=== PATIENT | female | born 1960 | race Caucasian/White ===

== ENCOUNTER 2018-07-30 10:04 | Outpatient (CLI) | payer BC, SELFPAY ==
[2018-07-30 13:08] LABS: ALT 31 U/L (12-78); AST 23 U/L (15-37); Albumin 3.7 g/dL (3.4-5.0); Alkaline Phosphatase 102 U/L (46-116); Anion Gap 7.2 mmol/L (3-11); BUN 24 mg/dL (7-18); Bilirubin, Total 0.3 mg/dL (0.2-1.0); CO2 28.8 mmol/L (21.0-32.0); CREATININE 0.91 mg/dL (0.55-1.02); Calcium 8.8 mg/dL (8.5-10.1); Chloride 106 mmol/L (98-107); Glucose 82 mg/dL (70-100); Potassium 4.4 mmol/L (3.5-5.1); Sodium 142 mmol/L (136-145)
== END 2018-07-30 10:24 ==
PROVIDERS: PCP Family Medicine; Visit Provider Family Medicine
DX: F32.9 Major depressive disorder, single episode, unspecified (principal)
CPT/HCPCS: 36415; 80053

== ENCOUNTER 2018-08-18 00:45 | Outpatient (CLI) | payer BC, SELFPAY ==
--- NOTE | 2018-08-18 08:30 | DI.MAMMO_ITS ---
SYMPTOM/DIAGNOSIS: SCREENING, Z12.31 MAMMOGRAMS: Mammograms were interpreted according to the usual protocol including computer analysis with CAD system, tomosynthesis and C view imaging. Comparison is made with prior examinations. Breast density, Category B. No suspicious masses or microcalcifications are seen. There is no definite evidence of malignancy. IMPRESSION: Negative mammogram. Routine screening is recommended. Category 1. MQSA ASSESSMENT OF FINDINGS: Negative. Category 1. Patient will receive a letter notifying them of these results. BI-RADS category B. There are scattered areas of fibroglandular density.
== END 2018-08-18 01:05 ==
PROVIDERS: PCP Family Medicine; Visit Provider Family Medicine
DX: Z12.31 Encounter for screening mammogram for malignant neoplasm of breast (principal)
CPT/HCPCS: 77063; 77067

== ENCOUNTER 2019-12-17 10:18 | Outpatient (CLI) | payer BC, SELFPAY ==
[2019-12-17 13:01] LABS: Hemoglobin A1C 5.5 % (<5.7)
[2019-12-17 13:03] LABS: Anion Gap 6.2 mmol/L (3-11); BUN 20 mg/dL (7-18); CO2 28.8 mmol/L (21.0-32.0); CREATININE 0.85 mg/dL (0.55-1.02); Calcium 8.8 mg/dL (8.5-10.1); Calculated LDL 115 mg/dL (<100); Chloride 108 mmol/L (98-107); Cholesterol 197 mg/dL (<200); Glucose 84 mg/dL (74-106); HDL Cholesterol 69 mg/dL (40-60); Potassium 4.6 mmol/L (3.5-5.1); Sodium 143 mmol/L (136-145); Triglyceride 67 mg/dL (<150)
== END 2019-12-17 10:38 ==
PROVIDERS: PCP Family Medicine; Visit Provider Nurse Practitioner Family
DX: Z00.00 Encounter for general adult medical examination without abnormal findings (principal); E66.9 Obesity, unspecified; Z13.220 Encounter for screening for lipoid disorders; Z13.1 Encounter for screening for diabetes mellitus
CPT/HCPCS: 36415; 80048; 80061; 83036

== ENCOUNTER 2020-01-10 01:58 | Outpatient (CLI) | payer BC, SELFPAY ==
--- NOTE | 2020-01-10 07:00 | DI.US_ITS ---
EXAM: US AAA SCREENING CLINICAL HISTORY: Fam hx of AAA, screen for AAA,Z82.49 COMPARISON: No exams were available for comparison FINDINGS: The aorta measures 2 cm in maximal dimension proximally. Iliac arteries are normal in diameter. IMPRESSION: No evidence of abdominal aortic aneurysm. DATA REPOSITORY:
--- NOTE | 2020-01-10 07:00 | DI.MAMMO_ITS ---
EXAM: MAMMO SCREENING CLINICAL HISTORY: screening,Z12.39 TECHNIQUE: Mammograms were interpreted according to the usual protocol including computer analysis w [employer] CAD system, tomosynthesis and C-view imaging. COMPARISON: 2010 through 2018 FINDINGS: The breasts are composed of scattered fibroglandular densities, Breast Density category B. No suspicious masses or suspicious microcalcifications are seen. No skin thickening or abnormal axillary lymph nodes are seen. There has been no significant change from prior exams. IMPRESSION: BI-RADS Category 1, Negative mammogram Yearly screening mammography is recommended. Breast Density - Category B, scattered fibroglandular densities. A negative radiographic report should not delay biopsy if a dominant or clinically suspicious mass is present. Up to ten percent of cancers are not identified on mammography. A negative report may reinforce clinical impression. Adenosis and dense breasts may obscure an underlying neoplasm. False positive reports average 6 to 10%. Patient will receive a letter notifying them of these results.
== END 2020-01-10 02:18 ==
PROVIDERS: PCP Family Medicine; Visit Provider Nurse Practitioner Family
DX: Z12.31 Encounter for screening mammogram for malignant neoplasm of breast (principal); Z82.49 Family history of ischemic heart disease and other diseases of the circulatory system
CPT/HCPCS: 76706; 77063; 77067

== ENCOUNTER 2020-01-19 00:47 | Outpatient (CLI) | payer BC, SELFPAY ==
--- NOTE | 2020-01-19 07:45 | DI.DEXA_ITS ---
EXAM: XR DEXA BONE DENSITY W/WO MAXIMINO CLINICAL HISTORY: SCREENING FOR OSTEOPOROSIS IN POSTMENOPAUSAL WOMAN,Z78.0 TECHNIQUE: COMPARISON: No exams were available for comparison FINDINGS: DEXA scan was performed according to the usual protocol. Please see the accompanying data sheets. F indings for left hip scanning are T-score 0.8 with left femoral neck T-score 0. Lumbar spine scanning shows T-score 1.6. Left forearm scanning shows T-score 0.3. IMPRESSION: Findings consistent with normal bone density according to the WHO criteria. The lateral vertebral sc anogram shows no evidence of a vertebral compression fracture. RADIATION DOSE DELIVERED: Total DLP
== END 2020-01-19 01:07 ==
PROVIDERS: PCP Family Medicine; Visit Provider Nurse Practitioner Family
DX: Z78.0 Asymptomatic menopausal state (principal)
CPT/HCPCS: 77080

== ENCOUNTER 2020-02-24 07:13 | Outpatient (CLI) | payer BC, SELFPAY ==
[2020-02-26 10:22] LABS: SARS-CoV-2 RNA Not Detected (NotDetected); SARS-CoV-2 RNA Source Nasal/Nares
== END 2020-02-24 07:33 ==
PROVIDERS: Surgery; PCP Family Medicine; Visit Provider Surgery
DX: Z11.59 Encounter for screening for other viral diseases (principal); Z01.818 Encounter for other preprocedural examination
CPT/HCPCS: U0003

== ENCOUNTER 2020-03-02 02:57 | Outpatient (CLI) | payer BC, SELFPAY ==
[2020-03-03 21:31] LABS: SARS-CoV-2 RNA Not Detected (NotDetected); SARS-CoV-2 RNA Source Nasal/Nares
== END 2020-03-02 03:17 ==
PROVIDERS: Surgery; PCP Family Medicine; Visit Provider Surgery
DX: Z11.59 Encounter for screening for other viral diseases (principal); Z01.818 Encounter for other preprocedural examination
CPT/HCPCS: U0003

== ENCOUNTER 2020-03-06 06:09 | Day surgery (SDC) | payer BC, SELFPAY ==
[2020-03-06 06:32] VITALS: BP 110/79; PULSE 87; RESP 18; TEMP 36.6; O2SAT 96
--- NOTE | 2020-03-06 06:50 | COLE_ITS ---
Date of service: 03/06/20 Time of Service: 08:00 Colonoscopy Report Date of procedure: 03/06/20 Pre-op diagnosis general: Colon Cancer Screening Post-op diagnosis procedure note: same Procedure: Colonoscopy Surgeon: Elizabeth Velazco Anesthesia proc note operative: other (General/ASa 2/Juliana Levin, SERGE) Estimated blood loss (mL): 0 Pathology: none sent Complications: None Disposition: same day Indications: The patient is here for Colonoscopy pre-op. Her last screening was in 2009 and was unremarkable. She has no family history of colon cancer. She has not had any bowel habit changes. -Discussed colonoscopy bowel prep as well as the procedure. Discussed possible complications of the procedure to include bleeding, pain, perforation, missed small lesion/polyp, sore throat, aspiration and adverse reaction to the medicat ions. Questions were answered to patient?s satisfaction. No guarantees were implied or given. Prep: Miralax/Dulcolax Procedure Start Time: 07:27 Procedure End Time: 07:57 Retraction Time: 16 Findings: Normal colon Procedure Description: After informed consent was obtained the patient was taken to the procedure room and placed in a left decubitous position. Monitors were applied and a time out was done. The patients name, date of , procedure, allergies to medications and metal in their body was reviewed. The patient was then sedated. Once sedated and comfortable a rectal exam was done. External exam was normal. Internal exam revealed a normal sphincter tone and no palpable masses. The scope was then introduced and retro-flexed. No internal hemorrhoids were identified. The scope was then advanced to the cecum without difficulty. The ileocecal valve and appendiceal orifice were identified. The prep was adequate. The scope was then slowly retracted over 16 minutes back into the rectum. There were no polyps and no diverticula. The scope was removed and the patient was woken up and taken back to Same day surgery in stable condition. The patient tolerated the procedure well and there were no immediate complications. Unfortunately the printer did not work and we lost the pictures taken. Follow up: The patient should follow up in 10 years unless they develop changes in bowel habits or other new gastrointestinal complaints.
--- NOTE | 2020-03-06 06:51 | W.PM.DSUDISC ---
Discharge Plan Disposition Patient Disposition: HOME Condition: Good Discharge Details Reason For Visit: Colonoscopy Attending Provider: Elizabeth Velazco Primary Care Provider: Andreina Sanders Home Meds and New Rx's Prescriptions: Continued venlafaxine 150 mg capsule,extended release 24hr 150 - 200 mg PO BID Qty: 180 RF: 4 cyanocobalamin (vitamin B-12) 1,000 mcg capsule 1,000 mcg PO DAILY RF: 0 Shingrix (PF) 50 mcg/0.5 mL suspension for reconstitution 0.5 ml IM ONCE Qty: 1 RF: 0 ascorbic acid (vitamin C) 1,000 MG tablet 1,000 mg PO DAILY Qty: 90 RF: 4 ibuprofen 600 MG tablet 300 - 600 mg PO Q6H PRN Qty: 90 RF: 4 calcium carbonate-vitamin D3 [Caltrate with Vitamin D3] 1 EACH tablet 1 ea PO DAILY Qty: 90 RF: 4 bupropion HCl (smoking deter) 150 MG tablet extended release 12 hr 150 mg PO HS Qty: 90 RF: 4 CENTRUM SILVER TABLET 1 EACH tablet 1 ea PO DAILY Qty: 90 RF: 4 GLUCOSAMINE \T\ CHONDROITIN CAP 1 EACH capsule 1 ea PO DAILY Qty: 90 RF: 4 albuterol sulfate [Proventil HFA] 6.7 GM HFA aerosol inhaler 2 puff Inhalation Q4H PRN Qty: 1 RF: 6 fluticasone propion-salmeterol [Advair Diskus] 250-50 mcg/dose blister with device 1 inh Inhalation BID Qty: 1 RF: 11 bupropion HCl 100 mg tablet sustained-release 12 hr 200 mg PO QAM Qty: 180 RF: 4 quetiapine [Seroquel] 100 mg tablet 200 mg PO HS Qty: 180 RF: 4 quetiapine 25 mg tablet 75 mg PO QAM Qty: 270 RF: 4 Discontinued polyethylene glycol 3350 17 gram/dose powder 238 g PO ONCE Qty: 238 RF: 0 bisacodyl [Dulcolax (bisacodyl)] 5 mg tablet,delayed release (DR/EC) 5 mg PO ONCE Qty: 4 RF: 0 Discharge Instructions Additional Instructions: Findings: Normal large bowel Follow up: 10 years Please call if you develop: fevers >101.5 Nausea or Vomiting Abdominal pain that is not transient DAY SURGERY UNIT POST ENDOSCOPY INSTRUCTIONS 1. Because there will be medication in your system for the next 24 hours, you may feel a little sleepy. Your coordination will be affected. Therefore: a. Do not drive or operate dangerous equipment for 24 hours. b. Do not drink alcohol beverages for 24 hours (not even beer). c. Plan to go home and rest for the day. 2. Generally there are no restrictions on your activity after a day or so has gone by, but you may feel a bit fatigued for a few days. 3 After you arrive home you may have a light meal and return to a normal diet as you can tolerate it without feeling sick to your stomach. 4. After surgery, you may feel pain or discomfort. This should be only transient, but if it persists please contact your doctor. 5. If there are any questions regarding the findings of your procedure, please feel free to contact your doctor. 6. If you are unable to contact your doctor with a problem, contact the hospital at [phone]. 7. Continue all your regular medications unless directed otherwise. I understand the above instructions and have no questions. Signature of Patient or Responsible Adult Escort Date/Time Name of Responsible Adult Escort Signature of Nurse Date/Time Activity:: Activity as Tolerated Diet:: As Tolerated Discharge Orders Discharge Orders: Discharge Order (Routine); Ordered 03/06/20 Ordered By: Elizabeth Velazco
[2020-03-06] MEDS: Lactated Ringers 1,000 ML 80 ML IV (06:54)
[2020-03-06 08:30] VITALS: BP 119/85; PULSE 71; RESP 16; TEMP 36.2; O2SAT 100
[2020-03-06 08:49] VITALS: PULSE 71; RESP 17; TEMP 36.5; O2SAT 96
== END 2020-03-06 09:00 | disposition home or self-care (01) ==
PROVIDERS: PCP Family Medicine; Visit Provider Surgery
PROC: 0DJD8ZZ Inspection of Lower Intestinal Tract, Via Natural or Artificial Opening Endoscopic (ICD-10-PCS; CPT 45378; principal; 2020-03-06 07:30)
DX: Z12.11 Encounter for screening for malignant neoplasm of colon (principal); E66.9 Obesity, unspecified; J45.30 Mild persistent asthma, uncomplicated
CPT/HCPCS: 45378; J2001; J2704

== ENCOUNTER 2021-01-18 02:26 | Outpatient (CLI) | payer BC, SELFPAY ==
--- NOTE | 2021-01-18 12:09 | DI.MAMMO_ITS ---
Exam(s) MAMMO SCREENING EXAM: MAMMO SCREENING CLINICAL HISTORY: screening,z12.39 TECHNIQUE: Bilateral full field digital CC and MLO mammographic images were obtained with 3D tomosyn thesis and utilizing computer aided detection (CAD). COMPARISON: Available for comparison. FINDINGS: Masses/Architectural Distortion: None seen. Microcalcifications: No suspicious pleomorphic-type are seen. Skin Thickening/Nipple Retraction: None. IMPRESSION: 1. No significant interval change with no specific features of malignancy noted. 2. Unless there is more urgent need, screening mammography is recommended, as per [employer] guidelines. BI-RADS Category 1 - Negative Breast Density - Category B - Scattered areas of fibroglandular density Breast density category C or D implies that the patient has dense breast tissue. Dense breast tissue is very common and is not abnormal but dense breast tissue can make it harder to find cancer on a ma mmogram. Also, dense breast tissue may increase their breast cancer risk. This information about the result of the mammogram report was provided to the patient to raise their awareness. Use this report when you speak with the patient about their risks for breast cancer, which includes their family hist ory. At that time, you may recommend for more screening tests (Ultrasound or MRI) as they might be us eful based on their risk. A negative radiographic report should not delay biopsy if a dominant or clinically suspicious mass is present. Up to ten percent of cancers are not identified on mammography. A negative report may reinforce clinical impression. Adenosis and dense breasts may obscure an underlying neoplasm. False positive reports average 6 to 10%. Patient will receive a letter notifying them of these results.
== END 2021-01-18 02:46 ==
PROVIDERS: PCP Nurse Practitioner Family; Visit Provider Nurse Practitioner Family
DX: Z12.31 Encounter for screening mammogram for malignant neoplasm of breast (principal)
CPT/HCPCS: 77063; 77067

== ENCOUNTER 2021-01-18 03:14 | Outpatient (CLI) | payer BC, SELFPAY ==
[2021-01-18 13:04] LABS: Anion Gap 5.8 mmol/L (3-11); BUN 17 mg/dL (7-18); CO2 27.2 mmol/L (21.0-32.0); CREATININE 0.9 mg/dL (0.55-1.02); Calcium 8.8 mg/dL (8.5-10.1); Chloride 108 mmol/L (98-107); Glucose 79 mg/dL (74-106); Potassium 4.5 mmol/L (3.5-5.1); Sodium 141 mmol/L (136-145)
== END 2021-01-18 03:15 | disposition home or self-care (01) ==
LOC: LBO 03:14
PROVIDERS: PCP Nurse Practitioner Family; Visit Provider Nurse Practitioner Family
DX: F32.9 Major depressive disorder, single episode, unspecified (principal)
CPT/HCPCS: 36415; 80048

== ENCOUNTER 2021-12-27 07:33 | Outpatient (CLI) | payer BC, SELFPAY ==
--- NOTE | 2021-12-27 07:30 | RT.EKG_ITS ---
APPROVED REPORT Exam: Resting ECG Reason for Exam: Hattie-ulises Patient Location: O HR:125 bpm ECG Measurements Heart Rate 125 AXIS MA 197 P 85 QRSd 91 QRS 65 QT 328 T -70 QTc 473 Conclusion Atrial flutter Low voltage, precordial leads...precordial leads <1.0mV ST elevation, consider inferior injury...ST >0.08mV, II III aVF
== END 2021-12-27 07:34 | disposition home or self-care (01) ==
LOC: DI.CM 07:34
PROVIDERS: PCP Nurse Practitioner Family; Visit Provider Nurse Practitioner Family
DX: I48.91 Unspecified atrial fibrillation (principal); I48.92 Unspecified atrial flutter
CPT/HCPCS: 93010

== ENCOUNTER 2021-12-27 08:25 | Emergency (ER) | payer BC, SELFPAY ==
[2021-12-27] VITALS (52 sets, daily range): BP systolic 107–126; BP diastolic 77–100; PULSE 47–159; RESP 10–29; TEMP 36.9; O2SAT 96–99
--- NOTE | 2021-12-27 08:15 | RT.EKG_ITS ---
APPROVED REPORT Exam: Resting ECG Reason for Exam: lightheaded Patient Location: E HR:125 bpm ECG Measurements Heart Rate 125 AXIS ME [id number] P [id number] QRSd 96 QRS 56 QT 333 T -78 QTc 476 Conclusion Atrial flutter with predominant 2:1 AV block...A-rate 254, multiple Ps Borderline T abnormalities, diffuse leads...T flat/neg ST elevation, consider inferior injury...ST >0.08mV, II III aVF. A flutter w/ 2:1 AV block. Early repolarization in inferior leads? No STEMI.
--- NOTE | 2021-12-27 08:27 | ED.GENADUL_ITS ---
Discharge Plan Disposition Patient Disposition: HOME Condition: Stable Discharge Details Clinical Impression: New onset atrial flutter Primary Care Provider: Nelly Jacobson ED Provider: Samantha Campos Home Meds and New Rx's Prescriptions: New metoprolol succinate 25 mg tablet extended release 24 hr 25 mg PO BID Qty: 60 0RF Eliquis 5 mg tablet 5 mg PO BID Qty: 60 0RF Rx Instructions: Take 2 tabs twice daily for 1 week and then 1 tab twice daily Continued albuterol sulfate [Proventil HFA] 90 mcg/actuation HFA aerosol inhaler 2 puff Inhalation Q4H PRN Qty: 1 6RF fluticasone propion-salmeterol [Advair Diskus] 250-50 mcg/dose blister with device 1 inh Inhalation BID Qty: 90 4RF venlafaxine 150 mg capsule,extended release 24hr 150 - 200 mg PO BID Qty: 180 Rx Instructions: 150mg AM, 200mg evening cyanocobalamin (vitamin B-12) 1,000 mcg capsule 1,000 mcg PO DAILY bupropion HCl 150 mg tablet extended release 24 hr 150 mg PO QHS glucosamine-chondroitin 900 mg tablet 900 mg PO DAILY Centrum Silver Women 8 mg iron-400 mcg-300 mcg tablet 1 tab PO DAILY ascorbic acid (vitamin C) 1,000 MG tablet 1,000 mg PO DAILY Qty: 90 ibuprofen 600 MG tablet 300 - 600 mg PO Q6H PRN Qty: 90 calcium carbonate-vitamin D3 [Caltrate with Vitamin D3] 1 EACH tablet 1 ea PO DAILY Qty: 90 bupropion HCl 100 mg tablet sustained-release 12 hr 200 mg PO QAM Qty: 180 quetiapine [Seroquel] 100 mg tablet 200 mg PO HS Qty: 180 quetiapine 25 mg tablet 75 mg PO QAM Qty: 270 Discharge Instructions Instructions: Atrial Flutter (ED) Additional Instructions: You were found to be in an abnormal heart rhythm called atrial flutter today. Your blood test and EKGs were reviewed with [facility] cardiology and they are recommending to start you on a beta-darien medication to control your heart rate and anticoagulation which is a blood thinner to prevent the development of a blood clot. Prescriptions for the beta-darien medication metoprolol and the blood thinner Eliquis has been sent electronically to your pharmacy. Return the telemetry monitor to the hospital as directed by respiratory therapy. You have been placed on care management list to arrange for a follow-up appointment with [facility] electrophysiology for further evaluation of your new onset atrial flutter and for consideration for cardioversion (which is a p rocedure that can shock your heart back into a normal rhythm) if indicated. Return immediately to the emergency department if you develop any worsening or new concerning symptoms. Referrals: Martha Finley MD [ [facility] STAFF PHYSICIAN] - Discharge Orders Other Ambulatory Orders: Cardiac Event Recorder (STAT) Timeframe: [id number] Facility: [facility] - Location: Respiratory Therapy Ordered By: Samantha Campos Discharge Data Discharge Date/Time-TO BE ENTERED AT DEPARTURE: 12/27/21 13:40 Discharge Physician: Samantha Campos Medical Decision Making 08 -- 61-year-old female with a history of obesity, depression and hyperlipidemia presents from [facility] for concern for OR on EKG done on her annual exam today was noted to have a heart rate of 130s. EMS reported a heart rate of 130s, regular with [address] elevation in 2 3 and aVF. She was given aspirin in route. Heart rate 120s and EKG notes a flutter with 2-1 AV block. She has normal blood pressure and oxygen saturation. She appears comfortable and nontoxic. She has what appears to be more widening of the QRS without significant ST elevation in 2 3 and aVF. Does not meet criteria for STEMI. Other than the EKG earlier today at [facility] there are no other EKGs to compare. We will consult [facility] cardiology for recommendations. Suspect patient's EKG findings are in the setting of arrhythmia secondary to atrial flutter. We will slow down her rate with Lopressor 2.5 mg IV and discuss further with [facility]. Case discussed with [facility] cardiology MEDICAL PROGRAM SPECIALIST Xavier Aquino who reviewed EKG w [facility] fellow --agrees that this appears more consistent with atrial flutter with 2-1 AV block. Agrees with plan for 2.5 mg Lopressor IV. If patient's work-up is unremarkable and she remains asymptomatic, can treat with metoprolol succinate, treatment with anticoagulation for 3 weeks, follow-up with electrophysiology and telemetry monitor upon discharge. Patient given 2.5 mg Lopressor IV and heart rate decreased to 90s. 1030 --labs and imaging reviewed. Normal white blood cell count. Troponin negative. BNP within normal limits. Chest x-ray negative. Heart rate now increased into the low 100s. We will give metoprolol succinate p.o. 25 mg x 1 and reassess. Plan for repeat troponin and EKG at 11:20 AM. Patient asymptomatic at this time. 1300 --repeat troponin negative. Repeat EKG notes a rate of 100, flutter waves, no STEMI. Patient's heart rate had briefly increased to 110s for which she was given an additional 2.5 mg Lopressor IV with improvement of heart rate now into the 80s and 90s. Patient reassessed and she remains asymptomatic. Patient feels comfortable going home. Case discussed again with [facility] cardiology nurse practitioner Xavier Aquino who reviewed repeat EKG and agrees with plan for discharge to home. Will prescribe metoprolol succinate 25 mg p.o. twice daily and Eliquis. A 30- day event monitor has been placed. She was placed on care management list to arrange for a follow-up appointment with electrophysiology at [facility]. Usual and customary return precautions given prior to discharge. Medical Records Medical records reviewed: Yes I reviewed the patient's medical records. Imaging Data Radiologic Study: Radiologist's impression: XR PORTABLE CHEST AP CLINICAL HISTORY:? lightheadedness, r/o acute disease TECHNIQUE:? 2D digital imaging was performed of the chest. One image was obtain ed.? An AP view was obtained. COMPARISON:? No exams were available for comparison FINDINGS: MEDIASTINUM: Normal.? HEART: Normal. PULMONARY VASCULATURE: Normal. LUNGS: Clear.? PLEURAL SPACE: No pleural effusion or pneumothorax. BONE:Within normal limits for the patient's age. OTHER FINDINGS:Normal.? IMPRESSION: No acute pulmonary findings. Lab Data Lab results reviewed: Yes I reviewed the patient's lab results. Labs: Laboratory Tests Range/Units 12/27/21 12/27/21 12/27/21 08:37 08:37 08:37 WBC (4.4-10.8) 10^3/uL 8.66 RBC (3.93-5.22) 10^6/uL 3.90 L Hgb (11.2-15.7) g/dL 11.9 Hct (36.0-46.0) % 36.8 MCV (80-95) fL 94 MCH (27.0-33.0) pg 30.5 MCHC (32.0-36.0) % 32.3 RDW (11.7-14.6) % 13.2 Plt Count (130-400) 10^3/uL 250 MPV (8.0-11.0) fL 9.1 Immature Gran % 0.5 Neutrophils % 62.4 Lymphocytes % 26.7 Monocytes % 8.0 Eosinophils % 1.8 Basophils % 0.6 Nucleated RBC % (0.0-0.3) % 0.0 Absolute Neutrophils (1.2-6.7) 10^3/uL 5.41 Absolute Lymphocytes (1.2-3.4) 10^3/uL 2.31 Absolute Monocytes (0.1-0.8) 10^3/uL 0.69 Absolute Eosinophils (0.0-0.7) 10^3/uL 0.16 Absolute Basophils (0.0-0.2) 10^3/uL 0.05 Sodium (136-145) mmol/L 140 Potassium (3.5-5.1) mmol/L 4.2 Chloride (98-107) mmol/L 108 H Carbon Dioxide (21.0-32.0) mmol/L 27.8 Anion Gap (3-11) mmol/L 4.2 BUN (7-18) mg/dL 19 H Creatinine (0.55-1.02) mg/dL 0.9 Est GFR (CKD-EPI 2020) (mL/min/1.73m2) 71.83 Glucose (74-106) mg/dL 87 Calcium (8.5-10.1) mg/dL 8.3 L Magnesium (1.8-2.4) mg/dL 2.0 Total Bilirubin (0.2-1.0) mg/dL 0.2 AST (15-37) U/L 21 ALT (14-59) U/L 22 Alkaline Phosphatase (46-116) U/L 108 Troponin I (<or=60) ng/L < 50 NT-Pro-B Natriuret Pep (<300) pg/mL 172 Cancelled Total Protein (6.4-8.2) g/dL 6.8 Albumin (3.4-5.0) g/dL 3.2 L Range/Units 12/27/21 11:07 WBC (4.4-10.8) 10^3/uL RBC (3.93-5.22) 10^6/uL Hgb (11.2-15.7) g/dL Hct (36.0-46.0) % MCV (80-95) fL MCH (27.0-33.0) pg MCHC (32.0-36.0) % RDW (11.7-14.6) % Plt Count (130-400) 10^3/uL MPV (8.0-11.0) fL Immature Gran % Neutrophils % Lymphocytes % Monocytes % Eosinophils % Basophils % Nucleated RBC % (0.0-0.3) % Absolute Neutrophils (1.2-6.7) 10^3/uL Absolute Lymphocytes (1.2-3.4) 10^3/uL Absolute Monocytes (0.1-0.8) 10^3/uL Absolute Eosinophils (0.0-0.7) 10^3/uL Absolute Basophils (0.0-0.2) 10^3/uL Sodium (136-145) mmol/L Potassium (3.5-5.1) mmol/L Chloride (98-107) mmol/L Carbon Dioxide (21.0-32.0) mmol/L Anion Gap (3-11) mmol/L BUN (7-18) mg/dL Creatinine (0.55-1.02) mg/dL Est GFR (CKD-EPI 2020) (mL/min/1.73m2) Glucose (74-106) mg/dL Calcium (8.5-10.1) mg/dL Magnesium (1.8-2.4) mg/dL Total Bilirubin (0.2-1.0) mg/dL AST (15-37) U/L ALT (14-59) U/L Alkaline Phosphatase (46-116) U/L Troponin I (<or=60) ng/L < 50 NT-Pro-B Natriuret Pep (<300) pg/mL Total Protein (6.4-8.2) g/dL Albumin (3.4-5.0) g/dL ECG Data Attestation: I personally reviewed and interpreted this ECG (s) as follows: Interpretation: #1 -- rate of 125, a flutter, no stemi, may be early repol inferior leads. #2 -- rate of 90, sinus vs flutter waves, no stemi. #3 -- rate of 100, a flutter, no stemi. HPI General Mode of arrival: ambulatory . Date/Time Provider Initiated Documentation: 12/27/21 08:45 . Limitations to Documentation: no limitations . Information obtained by: patient . HPI Narrative: Patient is a 61-year-old female with a history of obesity, depression, hyperlipidemia who presents for concern for OR per EKG done at [facility] this morning. Patient states she was at [facility] this morning for her annual exam when they noted her heart rate to be in the 130s and diffuse ST elevation. [facility] called to inform us that they were transporting patient by ambulance for possible OR. They reported that patient was asymptomatic. EMS reported that patient's heart rate was in the 130s and regular with [address] elevation in 2, 3 and aVF. They reported that patient had lightheadedness that has been intermittent and chronic. On arrival to ED, patient states she has had intermittent lightheadedness for a long time which she thought was due to her medications. She states that had she not been brought here for evaluation, she would not have mentioned the lightheadedness and thought it was not unusual. She states she was unaware of her tachycardia and has denied any palpitations. She denies any fever, chest pain, shortness of breath, abdominal pain, nausea, vomiting, diarrhea or urinary symptoms. She denies any spinning sensation or headache. She denies any alcohol or drug use. She denies any [id number]-qsbbgny medications, caffeine, or weight loss. Related Data Home Medications Medication Instructions Recorded Confirmed ascorbic acid (vitamin C) 1,000 mg 1,000 mg PO DAILY #90 tab-caps 02/24/13 12/27/21 tablet calcium carbonate 600 mg-vitamin 1 ea PO DAILY #90 tab-caps 02/24/13 12/27/21 D3 20 mcg (800 unit) tablet (Caltrate with Vitamin D3) ibuprofen 600 mg tablet 300 - 600 mg PO Q6H PRN #90 02/24/13 12/27/21 tab-caps bupropion HCl 100 mg tablet,12 hr 200 mg PO QAM #180 tab-caps 12/17/19 12/27/21 sustained-release cyanocobalamin (vitamin B-12) 1,000 mcg PO DAILY 12/17/19 12/27/21 1,000 mcg capsule quetiapine 100 mg tablet (Seroquel) 200 mg PO HS #180 tab-caps 12/17/19 12/27/21 quetiapine 25 mg tablet 75 mg PO QAM #270 tab-caps 12/17/19 12/27/21 venlafaxine 150 mg 150 - 200 mg PO BID #180 tab-caps 12/17/19 12/27/21 capsule,extended release 24 hr albuterol sulfate 90 mcg/actuation 2 puff inhalation Q4H PRN ##1 12/22/20 12/27/21 aerosol inhaler (Proventil HFA) fluticasone 250 mcg-salmeterol 50 1 inh inhalation BID #90 ea 12/22/20 12/27/21 mcg/dose blistr powdr for inhalation (Advair Diskus) antiarthritic combination no.2 900 900 mg PO DAILY 12/27/21 12/27/21 mg tablet (glucosamine-chondroitin) apixaban 5 mg tablet (Eliquis) 5 mg PO BID #60 tabs 12/27/21 bupropion HCl 150 mg 24 hr tablet, 150 mg PO QHS 12/27/21 12/27/21 extended release metoprolol succinate 25 mg 25 mg PO BID #60 tabs 12/27/21 tablet,extended release 24 hr multivit with 1 tab PO DAILY 12/27/21 12/27/21 qwrpjafd-tvur-ID-lutein 8 mg iron-400 mcg-300 mcg tablet (Centrum Silver Women) Previous Rx's Medication Instructions Recorded albuterol sulfate 90 mcg/actuation 2 puff inhalation Q4H PRN ##1 12/22/20 aerosol inhaler (Proventil HFA) fluticasone 250 mcg-salmeterol 50 1 inh inhalation BID #90 ea 12/22/20 mcg/dose blistr powdr for inhalation (Advair Diskus) apixaban 5 mg tablet (Eliquis) 5 mg PO BID #60 tabs 12/27/21 metoprolol succinate 25 mg 25 mg PO BID #60 tabs 12/27/21 tablet,extended release 24 hr Allergies Allergy/AdvReac Type Severity Reaction Status Date / Time No Known Allergies Allergy Verified 12/27/21 07:13 General Stated Complaint: Dizzy/Sync CLEO: 3 Review of Systems All systems reviewed & are unremarkable except as noted in HPI and below Constitutional Constitutional: Denies chills, Denies excessive sweating, Denies fatigue, Denies fever(s), Denies weakness and Denies weight loss Eyes Eyes: Reports system reviewed and no additional complaints, except as documented and Denies blurry vision ENT Ears, Nose, Mouth, and Throat: Denies vertigo, Reports dizziness, Denies otalgia, Denies nasal congestion, Denies sore throat and Denies throat swelling Cardiovascular Cardiovascular: Denies chest pain, Denies syncope, Denies rapid heart rate and Denies dyspnea Respiratory Respiratory: Denies chest congestion, Denies cough, Denies pain on inspiration and Denies dyspnea Gastrointestinal Gastrointestinal: Denies abdominal pain, Denies diarrhea and Denies vomiting Genitourinary Genitourinary: Denies hematuria, Denies dysuria and Denies flank pain Musculoskeletal Musculoskeletal: Denies back pain and Denies joint swelling Integumentary/Breasts Skin/Breast: Denies lesions and Denies rash Neurologic Neurologic: Denies behavioral changes, Denies confusion, Denies vertigo, Reports dizziness, Denies syncope, Denies localized weakness and Denies weakness Psychiatric Psychiatric: Denies behavioral changes, Denies confusion and Denies depression Endocrine Endocrine: Denies excessive sweating and Denies fatigue Hematologic/Lymphatic Hematologic/Lymphatic: Denies easy bruising and Denies lymphadenopathy Allergic/Immunologic Allergic/Immunologic: Denies throat swelling PFSH All Active Problems (Updated 12/27/21 @ 12:45 by Samantha Campos DO) New onset atrial flutter (Acute) Medical History (Updated 12/27/21 @ 12:45 by Samantha Campos DO) Hyperlipidemia Major depressive disorder Followed by psychiatrist Dr. Zee Reina [facility] Migraine aura without headache Mild persistent asthma Obesity Surgical History S/P colonoscopy (04/25/09) S/P PRAVEEN-BSO (total abdominal hysterectomy and bilateral salpingo-oophorectomy) (~1999) Family History Mother Essential hypertension Hyperlipidemia Heart disease Father , 88 from brain bleed Skin cancer Atrial fibrillation Brain aneurysm AAA (abdominal aortic aneurysm) Alcohol abuse Sister Substance abuse Essential hypertension Hyperlipidemia Melanoma Alcohol abuse Asthma Brother , 57 of OR Skin cancer Substance abuse Heart disease Myocardial infarction Brother Essential hypertension Heart disease Skin cancer Maternal Grandfather , at 73 Hypertension Heart disease Myocardial infarction Maternal Grandmother , 98 Essential hypertension Heart disease Skin cancer Breast cancer Paternal Grandfather No problems noted. Paternal Grandmother AAA (abdominal aortic aneurysm) Social History Smoking/Tobacco Use Status: Never Second Hand Exposure: Yes Smoking risk assessment performed?: Yes Alcohol Intake: current Alcohol Intake frequency: a few times a month Drug use: Never Substance use type: does not use Caregiver/Support person: No Household members: spouse Housing: house Communication Needs: Corrective Lenses Do you need help understanding health information?: Rarely Pets and animals: Yes Pets and animals: cat(s) and dog(s) Sexually active: Yes Do you think of yourself as: lesbian/dos santos/homosexual What is your relationship status?: How often do you talk on the phone with friends or family?: twice per week How often do you get together with friends or relatives?: twice per week How often do you attend pentecostal or anabaptism services?: 1-3 times per year Do you belong to any clubs or organized social groups?: yes Panel score (0-1 are the most socially isolated patients): 3 What type of physical activity do you participate in: walking and weight lifting Duration: 30-45 minutes/day Frequency: 5-6 times per week Rody/Yazdanism: [employer]ar[employer] Special rody needs: No Seatbelt use: always Helmet use: No Drive intox or ride w/intox xm1 tank driver: No Do you feel safe at home: Yes Do you feel safe in your relationship?: Yes History History 0 Para Hx # Term Pregnancies Multiple births Hx # Pregnancies Ectopic pregnancies AB induced Hx Number of Living Children AB spontaneous Exam Const General: cooperative and no acute distress Orientation: alert, awake and oriented x3 HENMT Head: normal to inspection Ears: hearing grossly normal bilaterally, external ears normal and TM's normal bilaterally General nose exam: external nose normal Face and sinus: normal facial exam Mouth: oral mucosae normal Teeth and gingiva: dentition normal Throat: posterior oropharynx normal Eyes General: appearance normal, both eyes and all related structures Eyelids: eyelids normal Pupils: PERRL EOM: EOM intact bilaterally Neck Neck: normal visual inspection Lymphatic: no lymphadenopathy noted Chest Chest: normal inspection of the chest Resp Effort & Inspection: normal respiratory effort and able to speak in complete sentences Auscultation: clear to auscultation bilaterally Cardio Rate: tachycardic Rhythm: regular rhythm GI Inspection: normal to inspection Palpation: soft, not firm, no guarding, no hepatosplenomegaly, no masses and nontender Auscultation: normal bowel sounds Skin General skin exam: no rashes or lesions noted Neuro General: patient alert and patient awake Cognition: normal cognition Speech: speech normal Gait: normal gait Motor: muscle tone normal throughout Sensory Exam: no sensory deficits noted Extrem General: normal to inspection, full ROM, capillary refill normal and no edema Psych Appearance: grossly normal Mental Status: mental status grossly normal Speech and Movement: speech and movement normal Affect: normal affect Thought Process: normal
[2021-12-27 08:43] LABS: Abs Immature Grans 0.04 10^3/uL (0.0-0.06); Absolute Basophil Count 0.05 10^3/uL (0.0-0.2); Absolute Eosinophil Count 0.16 10^3/uL (0.0-0.7); Absolute Lymphocyte Count 2.31 10^3/uL (1.2-3.4); Absolute Monocyte Count 0.69 10^3/uL (0.1-0.8); Absolute Neutrophil Count 5.41 10^3/uL (1.2-6.7); Basophils % 0.6; Eosinophils % 1.8; HCT 36.8 % (36.0-46.0); HGB 11.9 g/dL (11.2-15.7); Immature Grans % 0.5; Lymphocytes % 26.7; MCH 30.5 pg (27.0-33.0); MCHC 32.3 % (32.0-36.0); MCV 94 fL (80-95); MPV 9.1 fL (8.0-11.0); Neutrophils % 62.4; Platelet Count 250 10^3/uL (130-400); RDW 13.2 % (11.7-14.6); RDW-SD 46.1 fL; WBC 8.66 10^3/uL (4.4-10.8)
--- NOTE | 2021-12-27 08:45 | DI.RAD_ITS ---
Exam(s) XR PORTABLE CHEST AP EXAM: XR PORTABLE CHEST AP CLINICAL HISTORY: lightheadedness, r/o acute disease TECHNIQUE: 2D digital imaging was performed of the chest. One image was obtained. An AP view was ob tained. COMPARISON: No exams were available for comparison FINDINGS: MEDIASTINUM: Normal. HEART: Normal. PULMONARY VASCULATURE: Normal. LUNGS: Clear. PLEURAL SPACE: No pleural effusion or pneumothorax. BONE:Within normal limits for the patient's age. OTHER FINDINGS:Normal. IMPRESSION: No acute pulmonary findings. DATA REPOSITORY: RADIATION DOSE DELIVERED:
[2021-12-27] MEDS: Normal Saline 250 ML 500 ML IV (08:56)
[2021-12-27] MEDS: Metoprolol 5 MG/5 ML VIAL 2.5 MG IVP (09:14)
--- NOTE | 2021-12-27 09:15 | RT.EKG_ITS ---
APPROVED REPORT Exam: Resting ECG Reason for Exam: dizziness Patient Location: E HR:90 bpm ECG Measurements Heart Rate 90 AXIS VA 196 P 57 QRSd 99 QRS 42 QT 432 T 14 QTc 527 Conclusion Sinus rhythm...normal P axis, V-rate 60- 99 Prolonged QT interval...QTc >500mS. Sinus vs flutter waves, rate controlled. Normal VA. Prolonged QTc. No STEMI. I have reviewed and interpreted ECG and agree with software generated interpretation.
[2021-12-27 09:19] LABS: ALT 22 U/L (14-59); AST 21 U/L (15-37); Albumin 3.2 g/dL (3.4-5.0); Alkaline Phosphatase 108 U/L (46-116); Anion Gap 4.2 mmol/L (3-11); BUN 19 mg/dL (7-18); Bilirubin, Total 0.2 mg/dL (0.2-1.0); CO2 27.8 mmol/L (21.0-32.0); CREATININE 0.9 mg/dL (0.55-1.02); Calcium 8.3 mg/dL (8.5-10.1); Chloride 108 mmol/L (98-107); Estimated GFR 71.83 (mL/min/1.73m2); Glucose 87 mg/dL (74-106); NT-proBNP 172 pg/mL (<300); Potassium 4.2 mmol/L (3.5-5.1); Sodium 140 mmol/L (136-145); Total Protein 6.8 g/dL (6.4-8.2); Troponin I < 50 ng/L (<or=60)
[2021-12-27] MEDS: Metoprolol CR 25 MG TABCR PO (10:47)
--- NOTE | 2021-12-27 11:15 | RT.EKG_ITS ---
APPROVED REPORT Exam: Resting ECG Reason for Exam: dizzy Patient Location: E HR:100 bpm ECG Measurements Heart Rate 100 AXIS MT [id number] P [id number] QRSd 94 QRS 57 QT 390 T -1 QTc 503 Conclusion Atrial flutter...A-rate 254 ST elevation, consider inferior injury...ST >0.08mV, II III aVF Prolonged QT interval...QTc >500mS. Aflutter. No STEMI. I have reviewed and interpreted ECG and agree with software generated interpretation.
[2021-12-27 12:12] LABS: Troponin I < 50 ng/L (<or=60)
--- NOTE | 2021-12-27 13:51 | NUR.NOTE ---
Nursing Note: Referral given to Care Management to [facility] for new onset atrial flutter in 2 weeks.
--- NOTE | 2021-12-28 09:50 | CMACTNOTE_ITS ---
- If Service Date Differs Date of service: 12/28/21 Time of Service: 09:50 Care Management Activity Note Cuca is seen in the ED for new onset atrial flutter. At the request of ED provider, JINNY coordinates a referral to [facility] Electrophysiology to assist Cuca in obtaining an appointment for further evaluation and treatment. She has BCBS for insurance.
== END 2021-12-27 13:40 | disposition home or self-care (01) ==
LOC: ER 13:36
PROVIDERS: Emergency Provider Physician Assistant; PCP Nurse Practitioner Family
DX: I48.92 Unspecified atrial flutter (principal); I44.1 Atrioventricular block, second degree; Z77.22 Contact with and (suspected) exposure to environmental tobacco smoke (acute) (chronic)
CPT/HCPCS: 80053; 93005; 93270; 96374; 96376; 99284; 71045; 83735; 83880; 84484; 85025; 93010

== ENCOUNTER → 2022-01-21 01:47 | Outpatient (CLI) | payer BC, SELFPAY ==
--- NOTE | 2022-01-21 07:30 | DI.MAMMO_ITS ---
Exam(s) MAMMO SCREENING EXAM: MAMMO SCREENING CLINICAL HISTORY: screening,z12.39 TECHNIQUE: Mammograms were interpreted according to the usual protocol including computer analysis w [employer] CAD system, tomosynthesis and C-view imaging. COMPARISON: 2012 through 2020 FINDINGS: The breasts are composed of scattered fibroglandular densities, Breast Density category B. No suspicious masses or suspicious microcalcifications are seen. No skin thickening or abnormal axillary lymph nodes are seen. There has been no significant change from prior exams. IMPRESSION: BI-RADS Category 1, Negative mammogram Yearly screening mammography is recommended. Breast Density - Category B, scattered fibroglandular densities. A negative radiographic report should not delay biopsy if a dominant or clinically suspicious mass is present. Up to ten percent of cancers are not identified on mammography. A negative report may reinforce clinical impression. Adenosis and dense breasts may obscure an underlying neoplasm. False positive reports average 6 to 10%. Patient will receive a letter notifying them of these results.
== END ==
PROVIDERS: PCP Nurse Practitioner Family; Visit Provider Nurse Practitioner Family
DX: Z12.31 Encounter for screening mammogram for malignant neoplasm of breast (principal)
CPT/HCPCS: 77063; 77067

== ENCOUNTER 2022-01-21 14:51 | Outpatient (CLI) | payer BC, SELFPAY ==
[2022-01-21 13:08] LABS: Abs Immature Grans 0.06 10^3/uL (0.0-0.06); Absolute Basophil Count 0.06 10^3/uL (0.0-0.2); Absolute Eosinophil Count 0.16 10^3/uL (0.0-0.7); Absolute Lymphocyte Count 2.63 10^3/uL (1.2-3.4); Absolute Monocyte Count 0.58 10^3/uL (0.1-0.8); Basophils % 0.6; Eosinophils % 1.7; HCT 40.3 % (36.0-46.0); HGB 13.3 g/dL (11.2-15.7); Immature Grans % 0.6; Lymphocytes % 28.3; MCH 30.9 pg (27.0-33.0); MCV 94 fL (80-95); MPV 9.2 fL (8.0-11.0); Monocytes % 6.2; Neutrophils % 62.6; Platelet Count 284 10^3/uL (130-400); RBC 4.31 10^6/uL (3.93-5.22); RDW 13.7 % (11.7-14.6); RDW-SD 47.1 fL; WBC 9.29 10^3/uL (4.4-10.8)
[2022-01-21 13:36] LABS: ALT 22 U/L (14-59); AST 15 U/L (15-37); Albumin 3.7 g/dL (3.4-5.0); Alkaline Phosphatase 111 U/L (46-116); Anion Gap 4.2 mmol/L (3-11); BUN 17 mg/dL (7-18); Bilirubin, Total 0.4 mg/dL (0.2-1.0); CO2 28.8 mmol/L (21.0-32.0); Calcium 8.8 mg/dL (8.5-10.1); Chloride 106 mmol/L (98-107); Glucose 93 mg/dL (74-106); Potassium 4.8 mmol/L (3.5-5.1); Sodium 139 mmol/L (136-145); TSH (W/Ref FT4) 1.23 uIU/mL (0.36-3.74); Total Protein 7.5 g/dL (6.4-8.2)
== END 2022-01-21 14:52 | disposition home or self-care (01) ==
LOC: LBO 14:56
PROVIDERS: PCP Nurse Practitioner Family; Visit Provider Nurse Practitioner Family
DX: R00.0 Tachycardia, unspecified (principal); I48.92 Unspecified atrial flutter
CPT/HCPCS: 36415; 80053; 84443; 85025

== ENCOUNTER 2022-02-04 14:48 | Outpatient (CLI) | payer BC, SELFPAY ==
--- NOTE | 2022-02-04 15:35 | W.CARDEVENT ---
Date of service: 02/04/22 Time of Service: 15:35 Cardiac Event Recorder Referring Provider:: Samantha Campos Indications:: Atrial flutter Cardiac Event Note: This is a 30-day cardiac event monitor Atrial flutter was present throughout the recording with an average heart rate of 110. Maximum was 123 Episodes labeled sinus tachycardia were actually persistent atrial flutter with variable conduction There was no bradycardia, no high-grade AV block, no pauses It was unclear if there were patient symptoms
== END 2022-02-04 14:49 | disposition home or self-care (01) ==
LOC: CARDOPNVT 14:48
PROVIDERS: PCP Nurse Practitioner Family; Visit Provider Internal Medicine Cardiovascular Disease
DX: I48.92 Unspecified atrial flutter (principal)
CPT/HCPCS: 93272

== ENCOUNTER → 2023-01-24 03:10 | Outpatient (CLI) | payer BC, SELFPAY ==
--- NOTE | 2023-01-24 07:45 | DI.MAMMO_ITS ---
Exam(s) MAMMO SCREENING EXAM: MAMMO SCREENING CLINICAL HISTORY: screening.z12.39 TECHNIQUE: Mammograms were interpreted according to the usual protocol including computer analysis w [employer] CAD system, tomosynthesis and C-view imaging. COMPARISON: 2013 through 2021 FINDINGS: The breasts are composed of scattered fibroglandular densities, Breast Density category B. No suspicious masses or suspicious microcalcifications are seen. No skin thickening or abnormal axillary lymph nodes are seen. There has been no significant change from prior exams. IMPRESSION: BI-RADS Category 1, Negative mammogram Yearly screening mammography is recommended. Breast Density - Category B, scattered fibroglandular densities. A negative radiographic report should not delay biopsy if a dominant or clinically suspicious mass is present. Up to ten percent of cancers are not identified on mammography. A negative report may reinforce clinical impression. Adenosis and dense breasts may obscure an underlying neoplasm. False positive reports average 6 to 10%. Patient will receive a letter notifying them of these results.
== END ==
PROVIDERS: PCP Nurse Practitioner Family; Visit Provider Nurse Practitioner Family
DX: Z12.31 Encounter for screening mammogram for malignant neoplasm of breast (principal); R92.323 Mammographic fibroglandular density, bilateral breasts
CPT/HCPCS: 77063; 77067

== ENCOUNTER 2023-01-24 04:50 | Outpatient (CLI) | payer BC, SELFPAY ==
[2023-01-24 12:12] LABS: Anion Gap 7.5 mmol/L (3-11); BUN 20 mg/dL (7-18); CO2 26.5 mmol/L (21.0-32.0); CREATININE 0.9 mg/dL (0.55-1.02); Calcium 9.1 mg/dL (8.5-10.1); Calculated LDL 109 mg/dL (<100); Chloride 107 mmol/L (98-107); Cholesterol 196 mg/dL (<200); Estimated GFR 71.39 (mL/min/1.73m2); Glucose 88 mg/dL (74-106); HDL Cholesterol 75 mg/dL (40-60); Potassium 4.3 mmol/L (3.5-5.1); Sodium 141 mmol/L (136-145); Triglyceride 60 mg/dL (<150)
== END 2023-01-24 04:51 | disposition home or self-care (01) ==
LOC: LBO 04:50
PROVIDERS: PCP Nurse Practitioner Family; Visit Provider Nurse Practitioner Family
DX: Z00.00 Encounter for general adult medical examination without abnormal findings (principal)
CPT/HCPCS: 36415; 80048; 80061

== ENCOUNTER 2023-10-04 12:54 | Emergency (ER) | payer MEDICARE, BC, SELFPAY ==
[2023-10-04] VITALS (8 sets, daily range): BP systolic 122–157; BP diastolic 82–98; PULSE 71–82; RESP 14–18; TEMP 35.9; O2SAT 95–100
--- NOTE | 2023-10-04 13:00 | DI.RAD_ITS ---
Exam(s) XR CHEST 2V PA LATERAL EXAM: XR CHEST 2V PA LATERAL CLINICAL HISTORY: left flank pain TECHNIQUE: 2D digital imaging was performed. Two views. COMPARISON: CR XR PORTABLE CHEST AP from 12/27/2021 FINDINGS: HEART: Normal size. Aorta: Not dilated. PULMONARY VASCULATURE: Normal. MEDIASTINUM: Unremarkable. LUNGS: Minimal linear scarring in the left lower lung field. No focal area consolidation or pulmonar y edema. PLEURAL SPACE: No pleural effusion or pneumothorax. BONE:Unremarkable for age. SOFT TISSUES: Unremarkable. IMPRESSION: No acute abnormality. DATA REPOSITORY: RADIATION DOSE DELIVERED:
--- NOTE | 2023-10-04 13:15 | DI.CT_ITS ---
Exam(s) CT ABDOMEN PELVIS W EXAM: CT ABDOMEN PELVIS W CLINICAL HISTORY: left flank abd and back pain. TECHNIQUE: Imaging Protocol: Axial computed tomography images with coronal and sagittal reformatted images were created and reviewed CONTRAST MATERIAL: Intravenous: Omnipaque 350 Contrast volume:100 ml Oral: / no COMPARISON: No exams were available for comparison FINDINGS: ABDOMEN and PELVIS: Lung Bases: No acute findings. Liver: Normal density. No suspicious mass. Gallbladder and biliary tract: Phrygian cap at fundus of gallbladder. Question of some stones within . No wall thickening or abnormal distension. No biliary dilation. Pancreas: Normal density. No abnormal calcifications or inflammatory process. No evidence of mass. Spleen: Normal. Kidneys: Normal size, contour and axis. No radiodense stones. No obstructive uropathy. No suspicious masses seen. Adrenal glands: No masses seen. Vasculature: Abdominal aorta non-dilated. Soft tissues: Unremarkable. Bladder: No gross wall thickening. No calculi.No focal mass. Bowel: No obstruction. No bowel wall thickening. No evidence of appendicitis. Peritoneal cavity: No ascites. No focal collection. No mesenteric inflammatory response. Bones: Unremarkable for age. Reproductive organs: Status post hysterectomy. Lymph nodes: No pathologically enlarged lymph nodes. IMPRESSION:: No acute abnormality in the abdomen or pelvis. RADIATION DOSE DELIVERED: Total DLP DATA REPOSITORY: All CT scans at this facility are submitted to the National Radiology Data Registry (NRDR) Dose Index Registry (DIR) with the [employer] (ACR). RADIATION OPTIMIZATION: All CT scans at this facility use at least one of these dose optimization te chniques: automated exposure control; mA and/or kV adjustment per patient size (includes targeted exa ms where dose is matched to clinical indication); or iterative reconstruction.
--- NOTE | 2023-10-04 13:18 | ED.GENADUL_ITS ---
Discharge Plan Disposition Patient Disposition: Home Condition: Improving Discharge Details Clinical Impression: Flank pain Primary Care Provider: Nelly Jacobson ED Provider: Juan Galeana Home Meds and New Rx's Prescriptions: New lidocaine [Lidoderm] 5 % adhesive patch,medicated 1 patch topical DAILY Qty: 15 0RF Rx Instructions: leave on most painful area for up to 12 hrs cyclobenzaprine 5 mg tablet 5 mg PO QHS PRN (Reason: muscle spasm) Qty: 7 0RF No Action aspirin [Bryanna Aspirin] 325 mg tablet 325 mg PO DAILY venlafaxine 150 mg tablet extended release 24hr 300 mg PO QHS venlafaxine 75 mg tablet 150 mg PO QAM albuterol sulfate [Proventil HFA] 90 mcg/actuation HFA aerosol inhaler 2 puff Inhalation Q4H PRN Qty: 1 6RF cyanocobalamin (vitamin B-12) 1,000 mcg capsule 1,000 mcg PO DAILY bupropion HCl 150 mg tablet extended release 24 hr 150 mg PO QHS glucosamine-chondroitin 900 mg tablet 900 mg PO DAILY Centrum Silver Women 8 mg iron-400 mcg-300 mcg tablet 1 tab PO DAILY ascorbic acid (vitamin C) 1,000 MG tablet 1,000 mg PO DAILY Qty: 90 ibuprofen 600 MG tablet 300 - 600 mg PO Q6H PRN Qty: 90 calcium carbonate-vitamin D3 [Caltrate with Vitamin D3] 1 EACH tablet 1 ea PO DAILY Qty: 90 bupropion HCl 100 mg tablet sustained-release 12 hr 200 mg PO QAM Qty: 180 quetiapine [Seroquel] 100 mg tablet 200 mg PO HS Qty: 180 quetiapine 25 mg tablet 75 mg PO QAM Qty: 270 fluticasone propion-salmeterol [Advair Diskus] 250-50 mcg/dose blister with device 1 inh Inhalation BID Qty: 90 4RF Discharge Instructions Instructions: Flank Pain Additional Instructions: Please follow-up with your primary care physician. Return to the emergency department for any worsening symptoms HPI General Date/Time Provider Initiated Documentation: 10/04/23 13:00 . HPI Narrative: 62-year-old female presents with left flank pain abdominal pain over the last several days without associated symptoms, denies chest pain or shortness of breath does have some abdominal discomfort no urinary symptoms, urinalysis as outpatient the other day showed trace leuk esterase Related Data Home Medications Medication Instructions Recorded Confirmed ascorbic acid (vitamin C) 1,000 mg 1,000 mg PO DAILY #90 tab-caps 02/24/13 10/04/23 tablet calcium carbonate 600 mg-vitamin 1 ea PO DAILY #90 tab-caps 02/24/13 10/04/23 D3 20 mcg (800 unit) tablet (Caltrate with Vitamin D3) ibuprofen 600 mg tablet 300 - 600 mg PO Q6H PRN #90 02/24/13 10/04/23 tab-caps bupropion HCl 100 mg tablet,12 hr 200 mg PO QAM #180 tab-caps 12/17/19 10/04/23 sustained-release cyanocobalamin (vitamin B-12) 1,000 mcg PO DAILY 12/17/19 10/04/23 1,000 mcg capsule quetiapine 100 mg tablet (Seroquel) 200 mg PO HS #180 tab-caps 12/17/19 10/04/23 quetiapine 25 mg tablet 75 mg PO QAM #270 tab-caps 12/17/19 10/04/23 antiarthritic combination no.2 900 900 mg PO DAILY 12/27/21 10/04/23 mg tablet (glucosamine-chondroitin) bupropion HCl 150 mg 24 hr tablet, 150 mg PO QHS 12/27/21 10/04/23 extended release [id number] 8 mg-folic 400 1 tab PO DAILY 12/27/21 10/04/23 mcg-K 50 mcg-lutein 300 mcg tablet (Centrum Silver Women) albuterol sulfate 90 mcg/actuation 2 puff inhalation Q4H PRN ##1 01/18/22 10/04/23 aerosol inhaler (Proventil HFA) aspirin 325 mg tablet (Bryanna 325 mg PO DAILY blood thinnerr 12/30/22 10/04/23 Aspirin) venlafaxine 150 mg tablet,extended 300 mg PO QHS 12/30/22 10/04/23 release 24 hr venlafaxine 75 mg tablet 150 mg PO QAM Depression 12/30/22 10/04/23 fluticasone 250 mcg-salmeterol 50 1 inh inhalation BID #90 ea 08/21/23 10/04/23 mcg/dose blistr powdr for inhalation (Advair Diskus) cyclobenzaprine 5 mg tablet 5 mg PO QHS PRN muscle spasm #7 10/04/23 tabs lidocaine 5 % topical patch 1 patch topical DAILY #15 ea 10/04/23 (Lidoderm) Previous Rx's Medication Instructions Recorded albuterol sulfate 90 mcg/actuation 2 puff inhalation Q4H PRN ##1 01/18/22 aerosol inhaler (Proventil HFA) fluticasone 250 mcg-salmeterol 50 1 inh inhalation BID #90 ea 08/21/23 mcg/dose blistr powdr for inhalation (Advair Diskus) cyclobenzaprine 5 mg tablet 5 mg PO QHS PRN muscle spasm #7 10/04/23 tabs lidocaine 5 % topical patch 1 patch topical DAILY #15 ea 10/04/23 (Lidoderm) Allergies Allergy/AdvReac Type Severity Reaction Status Date / Time No Known Allergies Allergy Verified 10/04/23 13:01 General Stated Complaint: FlankPain CLEO: 3 Review of Systems Narrative: Review of Systems Constitutional: negative Eyes: negative ENT: negative Cardiovascular: negative Respiratory: negative Gastrointestinal: negative : negative Musculoskeletal: Left flank pain Skin: negative Neurologic: negative Psych: negative Exam Narrative Exam Narrative: Physical Examination General: alert, awake, cooperative, resting comfortably, no acute distress HEENT: normocephalic, atraumatic; PERRL, EOM intact, conjunctiva normal; no nasal discharge; moist mucous membranes, oral and pharyngeal mucosa normal, tolerating secretions Neck: supple, trachea midline; full ROM Chest: normal to inspection Respiratory: normal respiratory effort, speaking in full sentences, clear to auscultation, no wheezing, rales or rhonchi Cardiac: regular rate, regular rhythm, S1S2 intact, no murmurs rubs or gallops GI: abdomen soft, non-tender, non-distended; no palpable mass or hepatosplenomegaly Back: Uncomfortable with movements no point tenderness along spinal or paraspinal region Skin: no lesions, rashes or trauma appreciated Neuro: AAOx3, normal speech, moving all extremities Extremities: Moving all extremities no trauma Psych: Appropriate mood and affect Course Vital Signs Vital signs: Vital Signs Temperature 35.9 C L 10/04/23 12:56 Pulse 78 10/04/23 12:56 Respiratory Rate 14 10/04/23 12:56 Blood Pressure 157/98 H 10/04/23 12:56 Pulse Oximetry 100 10/04/23 12:56 Temperature 35.9 C L 10/04/23 12:56 Temperature Source Temporal Artery Scan 10/04/23 12:56 Pulse 78 10/04/23 12:56 Respiratory Rate 14 10/04/23 12:56 Blood Pressure 157/98 H 10/04/23 12:56 Blood Pressure Position Sitting 10/04/23 12:56 Pulse Oximetry 100 10/04/23 12:56 Oxygen Delivery Method Room Air 10/04/23 12:56 Oxygen Flow Rate 0 10/04/23 12:56 Pain Level 10 10/04/23 12:56 Medical Decision Making 62-year-old female presents with intermittent left flank discomfort some abdominal discomfort no nausea no vomiting no chest pain or shortness of breath, pain worse with movement no midline spinal tenderness no paraspinal tenderness, no rash noted, on outpatient patient had trace leuk esterase, consider lumbar/thoracic muscular strain versus pleurisy versus costochondritis most also consider splenomegaly versus pleural effusion versus pneumonia lower suspicion for PE or ACS or aortic pathology given history and physical most also consider UTI versus early pyelonephritis lower suspicion for nephrolithiasis, will provide analgesia will obtain urinalysis, basic labs, x-ray chest CT abdomen pelvis, Monospot, COVID swab 16: 24 resting comfortably no acute distress labs and imaging largely unremar kable. V rad report CT abdomen pelvis concerning for possible localized colitis however patient has no GI symptomatology is nonperitoneal no vomiting or diarrhea. Also read of possible atelectasis patient has no respiratory symptoms. Consider lumbar/thoracic back strain. Home care instruction return precautions Quality:SDOH Health Related Social Needs: No Data to Display PFSH All Active Problems (Updated 10/04/23 @ 16:25 by Juan Galeana MD) Flank pain (Acute) Hyperlipidemia (Chronic) Major depressive disorder (Chronic) Followed by psychiatrist Dr. Zee Reina [facility] Mild persistent asthma (Chronic) Migraine aura without headache (Chronic) Obesity (Chronic) Medical History Atrial flutter (~12/2021) S/p successful ablation 03/05. Eliquis and metoprolol d/c per cardiology Surgical History History of radiofrequency ablation procedure for cardiac arrhythmia (03/05/22) For atrial flutter S/P colonoscopy (04/25/09) S/P PRAVEEN-BSO (total abdominal hysterectomy and bilateral salpingo-oophorectomy) (~1999) Family History (Updated 12/30/22 @ 08:05 by Nelly Jacobson NP) Mother Essential hypertension Hyperlipidemia Heart disease Father , 88 from brain bleed Skin cancer Atrial fibrillation Brain aneurysm AAA (abdominal aortic aneurysm) Alcohol abuse Sister Substance abuse Essential hypertension Hyperlipidemia Melanoma Alcohol abuse Asthma Brother , 57 of [place] Skin cancer Substance abuse Heart disease Myocardial infarction Brother Essential hypertension Heart disease Skin cancer Maternal Grandfather , at 73 Hypertension Heart disease Myocardial infarction Maternal Grandmother , 98 Essential hypertension Heart disease Skin cancer Breast cancer Paternal Grandfather No problems noted. Paternal Grandmother AAA (abdominal aortic aneurysm) Social History Smoking/Tobacco Use Status: Never Second Hand Exposure: Yes Smoking risk assessment performed?: Yes Alcohol Intake: never Drug use: Never Substance use type: does not use Caregiver/Support person: No Household members: spouse Housing: house Communication Needs: Corrective Lenses Do you need help understanding health information?: Rarely Pets and animals: Yes Pets and animals: cat(s) and dog(s) Sexually active: Yes Do you think of yourself as: lesbian/dos santos/homosexual What is your relationship status?: How often do you talk on the phone with friends or family?: twice per week How often do you get together with friends or relatives?: twice per week How often do you attend rastafari or mandaen services?: 1-3 times per year Do you belong to any clubs or organized social groups?: yes Panel score (0-1 are the most socially isolated patients): 3 What type of physical activity do you participate in: walking and weight lifting Duration: 30-45 minutes/day Frequency: 5-6 times per week Rody/Mormonism: Jehovah'S Witness Special rody needs: No Seatbelt use: always Helmet use: No Drive intox or ride w/intox sanitation truck driver: No Do you feel safe at home: Yes Do you feel safe in your relationship?: Yes History History 0 Para Hx # Term Pregnancies Multiple births Hx # Pregnancies Ectopic pregnancies AB induced Hx Number of Living Children AB spontaneous
[2023-10-04] MEDS: Normal Saline - Diluent 50 ML VIAL IJ (13:29)
[2023-10-04] MEDS: Normal Saline Flush 10 ML SYR IVP (13:29)
[2023-10-04] MEDS: Normal Saline 500 ML 1000 ML IV (13:38)
[2023-10-04 13:57] LABS: Abs Immature Grans 0.03 10^3/uL (0.0-0.06); Absolute Basophil Count 0.05 10^3/uL (0.0-0.2); Absolute Eosinophil Count 0.22 10^3/uL (0.0-0.7); Absolute Lymphocyte Count 1.83 10^3/uL (1.2-3.4); Absolute Monocyte Count 0.51 10^3/uL (0.1-0.8); Absolute Neutrophil Count 5.32 10^3/uL (1.2-6.7); Basophils % 0.6 %; Eosinophils % 2.8 %; HCT 38.9 % (36.0-46.0); HGB 12.7 g/dL (11.2-15.7); Immature Grans % 0.4 %; MCH 30.9 pg (27.0-33.0); MCHC 32.6 % (32.0-36.0); MCV 95 fL (80-95); MPV 9.2 fL (8.0-11.0); Monocytes % 6.4 %; Neutrophils % 66.8 %; Platelet Count 263 10^3/uL (130-400); RBC 4.11 10^6/uL (3.93-5.22); RDW 13.4 % (11.7-14.6); RDW-SD 46.9 fL; WBC 7.96 10^3/uL (4.4-10.8)
[2023-10-04 14:01] LABS: Mono Screening Negative (Negative)
[2023-10-04 14:03] LABS: INR 1.1 (0.9-1.1); Prothrombin Time 10.6 sec (9.1-11.1)
[2023-10-04 14:06] LABS: ALT 29 U/L (14-59); AST 17 U/L (15-37); Albumin 3.5 g/dL (3.4-5.0); Alkaline Phosphatase 103 U/L (46-116); Anion Gap 7.8 mmol/L (3-11); BUN 17 mg/dL (7-18); Bilirubin, Total 0.32 mg/dL (0.2-1.0); CO2 28.2 mmol/L (21.0-32.0); CREATININE 0.9 mg/dL (0.55-1.02); Calcium 8.5 mg/dL (8.5-10.1); Chloride 106 mmol/L (98-107); Estimated GFR 71.39 (mL/min/1.73m2); Glucose 105 mg/dL (74-106); Lipase 40 U/L (16-77); Potassium 4.1 mmol/L (3.5-5.1); Sodium 142 mmol/L (136-145); Total Protein 7.1 g/dL (6.4-8.2); Troponin I < 50 ng/L (< or =60)
[2023-10-04 14:06] LABS: COVID-19 PCR Negative (Negative); Influenza A PCR Negative (Negative); Influenza B PCR Negative (Negative); RSV PCR Negative (Negative)
[2023-10-04 14:07] LABS: Source Nasopharynx
[2023-10-04 14:18] LABS: Bilirubin Negative (Negative); Blood Negative (Negative); Clarity Clear (Clear); Glucose Negative (Negative); Ketones Negative (Negative); Leukocyte Esterase Negative (Negative); Nitrite Negative (Negative); Specific Gravity >= 1.030 (1.005-1.025)
[2023-10-04] MEDS: Omnipaque 350 MG/ML 100 ML BTL IJ (14:26)
[2023-10-04] MEDS: ACETAMINOPHEN 1,000 MG/100 ML BTL 400 MG IVPB (14:54)
--- NOTE | 2023-10-04 16:05 | DI.VRAD_ITS ---
PROCEDURE INFORMATION: Exam: CT Abdomen And Pelvis With Contrast Exam date and time: 10/04/2023 2:26 PM Age: 62 years old Clinical indication: Other: Left flank abd and back pain; Prior surgery; Surgery date: 6+ months; Surgery type: TECHNIQUE: Imaging protocol: Computed tomography of the abdomen and pelvis with contrast. Contrast material: OMNIPAQUE 350; Contrast volume: 100 ml; Contrast route: INTRAVENOUS (IV); COMPARISON: US AAA SCREENING 01/10/2020 8:06 AM FINDINGS: Lungs: Mild right lower lobe medial atelectasis. Liver: Normal. No mass. Gallbladder and biliary ducts: Gallstone present at the gallbladder fundal level, possibly adherent. Pancreas: Normal. No ductal dilation. Spleen: Incidental note made of accessory splenic ossicle. No splenomegaly. Adrenal glands: Normal. No mass. Kidneys and ureters: Renal perfusion is symmetric without hydronephrosis or hydroureter. Stomach and bowel: The left colon is fairly decompressed. There may be some mild wall thickening, patchy versus artifact of incomplete distension. Appendix: No evidence of appendicitis. Intraperitoneal space: Unremarkable. No free air. No significant fluid collection. Vasculature: Unremarkable. No abdominal aortic aneurysm. Lymph nodes: Unremarkable. No enlarged lymph nodes. Urinary bladder: Unremarkable as visualized. Reproductive: Status post hysterectomy. Bones/joints: Unremarkable. No acute fracture. Soft tissues: Unremarkable. IMPRESSION: Possible, mild patchy left colitis versus artifact of incomplete distension. Dictated and Authenticated by: Dana Vegas MD. Ordering:TAE Martinez MD
--- NOTE | 2023-10-04 16:06 | DI.VRAD_ITS ---
PROCEDURE INFORMATION: Exam: XR Chest Exam date and time: 10/04/2023 2:32 PM Age: 62 years old Clinical indication: Other: Left flank abd and back pain TECHNIQUE: Imaging protocol: Radiologic exam of the chest. Views: 2 views. COMPARISON: CR XR PORTABLE CHEST AP 12/27/2021 8:59 AM FINDINGS: Lungs: There may be some minimal increased markings at the right lung base versus artifact of mild hypoinflation. This is not appreciated on the lateral view. Pleural spaces: Unremarkable. No pleural effusion. No pneumothorax. Heart/Mediastinum: Unremarkable. No cardiomegaly. Bones/joints: Unremarkable. IMPRESSION: Possible mild right lower lobe atelectasis. Dictated and Authenticated by: Dana Vegas MD. Ordering:TAE Martinez MD
[2023-10-04] MEDS: Lidocaine 5% Patch 1 PATCH TP (16:41)
== END 2023-10-04 16:42 | disposition home or self-care (01) ==
PROVIDERS: Emergency Provider Emergency Medicine; PCP Nurse Practitioner Family
DX: R10.32 Left lower quadrant pain (principal)
CPT/HCPCS: 36415; 80053; 83690; 87637; 96361; 96374; 99285; 71046; 74177; 81003; 84484; 85025; 85610; 85730; 86308; 99283; J0131; J3490

== ENCOUNTER 2024-02-03 01:17 | Outpatient (CLI) | payer MEDICARE, BC, SELFPAY | END 2024-02-03 01:37 | LOC: DI 01:18 | PROVIDERS: PCP Nurse Practitioner Family; Visit Provider Nurse Practitioner Family | DX: Z12.31 Encounter for screening mammogram for malignant neoplasm of breast (principal) | CPT/HCPCS: 77063; 77067 ==

== ENCOUNTER 2024-02-03 02:02 | Outpatient (CLI) | payer MEDICARE, BC, SELFPAY ==
[2024-02-03 11:36] LABS: Abs Immature Grans 0.05 10^3/uL (0.0-0.06); Absolute Basophil Count 0.07 10^3/uL (0.0-0.2); Absolute Eosinophil Count 0.22 10^3/uL (0.0-0.7); Absolute Lymphocyte Count 2.15 10^3/uL (1.2-3.4); Absolute Monocyte Count 0.53 10^3/uL (0.1-0.8); Absolute Neutrophil Count 4.33 10^3/uL (1.2-6.7); HCT 38.4 % (36.0-46.0); HGB 12.5 g/dL (11.2-15.7); Immature Grans % 0.7 %; Lymphocytes % 29.3 %; MCH 30.7 pg (27.0-33.0); MCHC 32.6 % (32.0-36.0); MCV 94 fL (80-95); Monocytes % 7.2 %; Neutrophils % 58.8 %; Platelet Count 269 10^3/uL (130-400); RBC 4.07 10^6/uL (3.93-5.22); RDW 13.5 % (11.7-14.6); RDW-SD 46.7 fL; WBC 7.35 10^3/uL (4.4-10.8)
[2024-02-03 11:55] LABS: Hemoglobin A1C 5.6 % (<5.7)
[2024-02-03 11:59] LABS: ALT 24 U/L (14-59); AST 18 U/L (15-37); Albumin 3.5 g/dL (3.4-5.0); Alkaline Phosphatase 111 U/L (46-116); Anion Gap 4.7 mmol/L (3-11); BUN 18 mg/dL (7-18); Bilirubin, Total 0.29 mg/dL (0.2-1.0); CO2 31.3 mmol/L (21.0-32.0); Calcium 9.1 mg/dL (8.5-10.1); Calculated LDL 101 mg/dL (<100); Chloride 108 mmol/L (98-107); Cholesterol 196 mg/dL (<200); Estimated GFR 62.52 (mL/min/1.73m2); Glucose 82 mg/dL (74-106); HDL Cholesterol 86 mg/dL (40-60); Potassium 4.4 mmol/L (3.5-5.1); Sodium 144 mmol/L (136-145); TSH (W/Ref FT4) 0.74 uIU/mL (0.36-3.74); Total Protein 7.1 g/dL (6.4-8.2); Triglyceride 47 mg/dL (<150)
== END 2024-02-03 02:03 | disposition home or self-care (01) ==
LOC: LBO 02:03
PROVIDERS: PCP Nurse Practitioner Family; Visit Provider Psychiatry & Neurology Psychiatry
DX: Z79.899 Other long term (current) drug therapy (principal); F33.1 Major depressive disorder, recurrent, moderate
CPT/HCPCS: 36415; 80053; 80061; 83036; 84443; 85025

== ENCOUNTER 2025-01-25 03:18 | Outpatient (CLI) | payer MEDICARE, BC, SELFPAY ==
[2025-01-25 13:04] LABS: Abs Immature Grans 0.03 10^3/uL (0.0-0.06); HCT 38.8 % (36.0-46.0); HGB 13.0 g/dL (11.2-15.7); Immature Grans % 0.3 %; MCH 31.3 pg (27.0-33.0); MCHC 33.5 % (32.0-36.0); MCV 93 fL (80-95); MPV 8.9 fL (8.0-11.0); Platelet Count 285 10^3/uL (130-400); RBC 4.16 10^6/uL (3.93-5.22); RDW 13.3 % (11.7-14.6); RDW-SD 45.9 fL; WBC 8.79 10^3/uL (4.4-10.8)
[2025-01-25 13:39] LABS: ALT 28 U/L (14-59); AST 19 U/L (15-37); Albumin 3.5 g/dL (3.4-5.0); Alkaline Phosphatase 110 U/L (46-116); Anion Gap 8.6 mmol/L (3-11); BUN 20 mg/dL (7-18); Bilirubin, Total 0.4 mg/dL (0.2-1.0); CO2 28.4 mmol/L (21.0-32.0); Calcium 8.9 mg/dL (8.5-10.1); Chloride 107 mmol/L (98-107); Estimated GFR 70.51 (mL/min/1.73m2); Glucose 85 mg/dL (74-106); Potassium 4.7 mmol/L (3.5-5.1); Sodium 144 mmol/L (136-145); Total Protein 7.1 g/dL (6.4-8.2)
[2025-01-26 19:16] LABS: HIV-1/2 Ag & Ab Screen Negative (Negative)
[2025-01-26 20:37] LABS: Hepatitis C Ab w Rflx HCV PCR Negative (Negative)
[2025-01-26 21:20] LABS: HBs Antibody, Quant 8.9 mIU/mL (See Note); Hepatitis B Surface Antigen Negative (Negative)
== END 2025-01-25 03:19 | disposition home or self-care (01) ==
PROVIDERS: PCP Nurse Practitioner Family; Visit Provider Nurse Practitioner Family
DX: F32.9 Major depressive disorder, single episode, unspecified (principal); Z11.59 Encounter for screening for other viral diseases; Z11.4 Encounter for screening for human immunodeficiency virus [HIV]
CPT/HCPCS: 36415; 80053; 86704; 86706; 86803; 87340; 87389; 85025

== ENCOUNTER → 2025-02-17 01:42 | Outpatient (CLI) | payer MEDICARE, BC, SELFPAY ==
--- NOTE | 2025-02-17 07:30 | DI.MAMMO_ITS ---
Exam(s) MAMMO SCREENING EXAM: MAMMO SCREENING CLINICAL HISTORY: screening,z12.39 TECHNIQUE: Bilateral full field digital CC and MLO mammographic images were obtained with 3D tomosynthesis and utilizing computer aided detection (CAD). COMPARISON: Comparison is made with prior examinations. FINDINGS: Masses/Architectural Distortion: No suspicious masses or areas of architectural distortion are present. Microcalcifications: No suspicious pleomorphic-type are seen. Skin Thickening/Nipple Retraction: None. IMPRESSION: 1. No significant interval change with no specific features of malignancy noted. 2. Unless there is more urgent need, screening mammography is recommended, as per [employer] guidelines. BI-RADS Category 1 - Negative Breast Density - Category B - There are scattered areas of fibroglandular density. Breast density Category C or D implies that the patient has dense breast tissue. Dense breast tissue can make it harder to find cancer on a mammogram. Dense breast tissue is also associated with an increased risk of breast cancer. This information about the result of the mammogram report was provided to the patient to raise their awareness. Use this report when you speak with the patient about their risks for breast cancer, which includes their family history. At that time, you may recommend additional screening tests (Ultrasound or MRI) as these tests may add significant information. A negative radiographic report should not delay biopsy if a dominant or clinically suspicious mass is present. Up to ten percent of cancers are not identified on mammography. A negative report may reinforce clinical impression. Adenosis and dense breasts may obscure an underlying neoplasm. False positive reports average 6 to 10%. Patient will receive a letter notifying them of these results.
--- NOTE | 2025-02-17 14:23 | DI.DEXA_ITS ---
Exam(s) XR DEXA BONE DENSITY W/WO MAXIMINO EXAM: XR DEXA BONE DENSITY W/WO MAXIMINO CLINICAL HISTORY: osteoporosis screening postmenopausal status,z78.0 TECHNIQUE: COMPARISON: CR XR DEXA BONE DENSITY W/WO MAXIMINO from 01/19/2020 FINDINGS: Lateral Spine Image: Unremarkable. No compression deformities identified. Left hip: Total T-Score: 0.6. This compares to 0.8 on the prior examination. Total Z-Score: 1.9 T- and Z-scores: Within normal limits. Lumbar Spine: Total T-Score: 2.4. This compares to 1.7 on the prior examination. Total Z-Score: 4.3 T- and Z-scores: Within normal limits. IMPRESSION: No evidence of osteoporosis.
== END ==
LOC: DI 01:51
PROVIDERS: PCP Nurse Practitioner Family; Visit Provider Nurse Practitioner Family
DX: Z78.0 Asymptomatic menopausal state (principal); Z12.31 Encounter for screening mammogram for malignant neoplasm of breast
CPT/HCPCS: 77063; 77067; 77080